=== PATIENT | female | born 1965 | race African-American/Black ===

== ENCOUNTER 2019-12-15 10:00 | Emergency (ER) | payer OTHER ==
[~2019-12-15] VITALS: Ht 172.7 cm; Wt 104.3 kg
[2019-12-15] MEDS ORDERED: NEURONTIN300 MG ORAL (10:18)
--- NOTE | 2019-12-15 10:20 | NUR ---
ED Nurse Note: Pt from home walked in due to right foot numbness x 2 months. hx of osteoarthritis. AAO x4 and ambulates with steady gait.
[2019-12-15 10:24] VITALS: BP 125/65
--- NOTE | 2019-12-15 10:24 | NUR ---
ER DISCHARGE NOTE: Patient is cleared to be discharged per ERMD, pt is aox4, on room air, with stable vital signs. pt was given dc and prescription instructions, pt was able to verbalize understanding, pt id band removed. pt is able to ambulate with steady gait. pt took all belongings.
--- NOTE | 2019-12-15 10:29 | Emergency Room Report ---
History of Present Illness General Chief Complaint: Lower Extremity Injury Source: Patient Present Illness HPI Patient is a 53-year-old female past medical history of osteoarthritis who presents to the ER complaining of numbness and tingling to her right toes for the past 2 to 3 months. She denies any trauma. She states that she is able to ambulate. She states that she has not seen her doctor due to the COVID-19 pandemic. Patient denies any lower extremity swelling or redness. Patient states that he just feels like her toes are sleeping. Allergies: Coded Allergies: No Known Allergies (Unverified , 12/15/19) COVID-19 Screening Contact w/high risk pt: No Recent Travel to affected area: No Experienced COVID-19 symptoms?: No COVID-19 Testing performed MSWS: No Patient History Now: No Reviewed Nursing Documentation: PMH: Agreed; PSxH: Agreed Review of Systems All Other Systems: negative except mentioned in HPI Physical Exam Vital Signs Date Time Temp Pulse Resp B/P (MAP) Pulse Ox O2 Delivery O2 Flow Rate FiO2 12/15/19 10:11 98.1 108 21 112/57 (75) 95 Room Air Sp02 EP Interpretation: reviewed, normal General Appearance: no apparent distress, alert, GCS 15, non-toxic Head: normocephalic, atraumatic Eyes: bilateral eye normal inspection, bilateral eye PERRL ENT: hearing grossly normal, normal pharynx, no angioedema, normal voice Neck: full range of motion, supple/symm/no masses Respiratory: chest non-tender, lungs clear, normal breath sounds, speaking full sentences Cardiovascular #1: regular rate, rhythm, no edema Cardiovascular #2: 2+ dorsalis pedis (R), 2+ dorsalis pedis (L) Gastrointestinal: normal bowel sounds, non tender, soft, non-distended, no guarding, no rebound Rectal: deferred Musculoskeletal: other - Complains of paresthesias to R toes, cap refill immediate, no swelling, no redness, 2+ pedal pulses bilaterally., Normal strength warm extremity Neurologic: topstitcher zigzag III-XII nml as tested Psychiatric: no suicidal/homicidal ideation Skin: no rash Lymphatic: no adenopathy Medical Decision Making Diagnostic Impression: Primary Impression: Paresthesia ER Course Patient has paresthesias to her right toes for the past 2 to 3 months. She is ambulating without difficulty. Extremity is warm and well-perfused. We will try gabapentin. Patient states she will follow-up with her primary care physician if it is not improved. After discussing risks and benefits of further diagnostics, treatment plans, as well as indications for and risks of admission, the patient is agreeable to being discharged home. I have explained that their evaluation and treatment in the emergency department today is an important step towards them achieving better health but that their evaluation today is not intended to replace further evaluation and treatment by a physician in their local clinic. I have explained that while the current findings suggest no immediate life threatening emergency they will require further evaluation and treatment by a physician of their choice in their area. They understand that it will be necessary for them to review the final reports of their ED visit with their clinic physician. We have reviewed indications for return to the Emergency Department. I have explained that additional time may need to pass and/or additional testing as an outpatient may be necessary before a definitive diagnosis can be made. They tell me they are willing to follow up as instructed within the timeframe I recommend. They appear to understand what we discussed. Additionally they understand that if they are unable to be seen by an outpatient physician they are welcome, and in fact should, return to the Emergency Department for a repeat evaluation. The patient is stable at time of discharge. Last Vital Signs Date Time Temp Pulse Resp B/P (MAP) Pulse Ox O2 Delivery O2 Flow Rate FiO2 12/15/19 10:11 98.1 108 21 112/57 (75) 95 Room Air Disposition: HOME, SELF-CARE Condition: Stable Scripts Gabapentin (Neurontin) 300 Mg Capsule 300 MG ORAL THREE TIMES A DAY for 30 Days, CAP 0 Refills Take 300mg PO once day one Take 300mg PO bid day two Take 300mg PO TID days 3-30 Prov: Aleja Mojica M.D. 12/15/19 Referrals: NON PHYSICIAN (PCP) Patient Instructions: Paresthesia, [id number] Additional Instructions: The patient was provided with discharge instructions, notified to follow-up with a primary care doctor and or specialist in the next 24-48 hours, and to return to the ED if they have worsening of their symptoms. Please note that this report is being documented using [employer] technology. This can lead to erroneous entry secondary to incorrect interpretation by the dictating instrument. Aleja Mojica M.D. December 15, 2019 10:29
== END 2019-12-15 10:24 | disposition home or self-care (01) ==
LOC: EMR 10:20
DX: R20.2 Paresthesia of skin (principal); M19.90 Unspecified osteoarthritis, unspecified site
CPT/HCPCS: 99282

== ENCOUNTER 2020-04-23 09:49 | Emergency (ER) | payer OTHER ==
[~2020-04-23] VITALS: Ht 172.7 cm; Wt 95.3 kg
[~2020-04-23 09:49] MED LIST: NEURONTIN300 MG ORAL
[2020-04-23] MEDS ORDERED: IBUPROFEN800 MG ORAL (10:15)
[2020-04-23 10:27] VITALS: BP 117/83
--- NOTE | 2020-04-23 10:58 | Emergency Room Report ---
History of Present Illness General Chief Complaint: Skin Rash/Abscess Source: Patient Present Illness HPI Patient 54-year-old female presents for increased pain to her left breast. Patient states that she had recently attempted to drain a skin lesion. Subsequent noticed increased pain and swelling to the left breast. 3 days of discomfort. Denies prior history of breast disease. She also reports having in creased chest discomfort with associated muscle spasming and shortness of breath. Denies any cough. Reports having previous negative coronavirus testing. Patient states that she is a smoker. She had previously been told that she had possibly diabetes. Allergies: Coded Allergies: No Known Allergies (Unverified , 12/15/19) COVID-19 Screening Contact w/high risk pt: No Recent Travel to affected area: No Experienced COVID-19 symptoms?: No COVID-19 Testing performed TIN ROOFER: No Patient History Past Medical History: see triage record Reviewed Nursing Documentation: PMH: Agreed; PSxH: Agreed Review of Systems All Other Systems: negative except mentioned in HPI Physical Exam Vital Signs Date Time Temp Pulse Resp B/P (MAP) Pulse Ox O2 Delivery O2 Flow Rate FiO2 04/23/20 10:12 98.4 32 18 119/82 (94) 95 Room Air Sp02 EP Interpretation: reviewed, normal General Appearance: normal inspection, well appearing, no apparent distress, alert, GCS 15 Head: atraumatic ENT: normal ENT inspection, hearing grossly normal, normal voice Neck: normal inspection, full range of motion, supple, no bony tend Respiratory: normal inspection, lungs clear, normal breath sounds, no respiratory distress, no retraction, no wheezing Cardiovascular #1: regular rate, rhythm, no edema Gastrointestinal: normal inspection, normal bowel sounds, non tender, soft, no guarding, no hernia Genitourinary: no CVA tenderness Musculoskeletal: normal inspection, back normal, normal range of motion Neurologic: alert, motor strength/tone normal, electric organ checker III-XII nml as tested, oriented x3, responsive, speech normal, normal inspection Psychiatric: normal inspection, judgement/insight normal, mood/affect normal Skin: other - Left-sided breast small ulceration with surrounding erythema without any definite mass. Medical Decision Making Diagnostic Impression: Primary Impression: Cellulitis of left breast Additional Impression: Chest pain in adult ER Course Patient presented for breast lesion as well as chest pain. Differential diagnosis include was not limited to pneumonia, bronchitis, myocardial infarction, unstable angina among others. Because of complexity of patient's case laboratory tests and imaging studies were ordered. Given patient's history of smoking as well as hypertension and possible diabetes. Patient does have some concern for cardiac disease.Patient was discussed with Dr. Raman who accepted the patient to [facility]. Labs Test 04/23/20 11:06 White Blood Count 3.6 K/UL (4.8-10.8) Red Blood Count 5.14 M/UL (4.20-5.40) Hemoglobin 14.8 G/DL (12.0-16.0) Hematocrit 44.3 % (37.0-47.0) Mean Corpuscular Volume 86 FL (80-99) Mean Corpuscular Hemoglobin 28.8 PG (27.0-31.0) Mean Corpuscular Hemoglobin Concent 33.5 G/DL (32.0-36.0) Red Cell Distribution Width 12.7 % (11.6-14.8) Platelet Count 254 K/UL (150-450) Mean Platelet Volume 8.4 FL (6.5-10.1) Neutrophils (%) (Auto) 56.0 % (45.0-75.0) Lymphocytes (%) (Auto) 36.6 % (20.0-45.0) Monocytes (%) (Auto) 5.5 % (1.0-10.0) Eosinophils (%) (Auto) 0.6 % (0.0-3.0) Basophils (%) (Auto) 1.3 % (0.0-2.0) Sodium Level 134 MMOL/L (136-145) Potassium Level 4.3 MMOL/L (3.5-5.1) Chloride Level 100 MMOL/L (98-107) Carbon Dioxide Level 29 MMOL/L (21-32) Anion Gap 5 mmol/L (5-15) Blood Urea Nitrogen 7 mg/dL (7-18) Creatinine 0.7 MG/DL (0.55-1.30) Estimat Glomerular Filtration Rate > 60 mL/min (>60) Glucose Level 380 MG/DL (74-106) Calcium Level 9.3 MG/DL (8.5-10.1) Total Bilirubin 0.3 MG/DL (0.2-1.0) Aspartate Amino Transf (AST/SGOT) 16 U/L (15-37) Alanine Aminotransferase (ALT/SGPT) 22 U/L (12-78) Alkaline Phosphatase 139 U/L (46-116) Troponin I 0.002 ng/mL (0.000-0.056) Pro-B-Type Natriuretic Peptide 25 pg/mL (0-125) Total Protein 7.6 G/DL (6.4-8.2) Albumin 3.7 G/DL (3.4-5.0) Globulin 3.9 g/dL Albumin/Globulin Ratio 0.9 (1.0-2.7) EKG Diagnostic Results Rate: normal Rhythm: NSR ST Segments: other - inferior twave inversion Last Vital Signs Date Time Temp Pulse Resp B/P (MAP) Pulse Ox O2 Delivery O2 Flow Rate FiO2 04/23/20 10:27 98.4 72 17 117/83 97 Room Air Disposition: SHORT-TERM HOSP Condition: Stable Chriss Albarran MD Apr 23, 2020 10:58
[2020-04-23] MEDS ORDERED: cefTRIAXone 1 GM in NS 55 ML IVPB ONE (11:00)
[2020-04-23] MEDS ORDERED: Aspirin Baby 81mg ORAL ONE (11:00)
[2020-04-23 11:59] LABS: BASOPHILS % (AUTO) 1.3 % (0.0-2.0); EOSINOPHILS % (AUTO) 0.6 % (0.0-3.0); HEMATOCRIT 44.3 % (37.0-47.0); HEMOGLOBIN 14.8 G/DL (12.0-16.0); LYMPHOCYTES % (AUTO) 36.6 % (20.0-45.0); MEAN CORPUSCULAR VOLUME 86 FL (80-99); MONOCYTES % (AUTO) 5.5 % (1.0-10.0); PLATELET COUNT 254 K/UL (150-450); RED BLOOD COUNT 5.14 M/UL (4.20-5.40); RED CELL DISTRIBUTION WIDTH 12.7 % (11.6-14.8); WHITE BLOOD COUNT 3.6 K/UL (4.8-10.8)
[2020-04-23 12:06] LABS: ANION GAP 5 mmol/L (5-15); BLOOD UREA NITROGEN 7 mg/dL (7-18); CALCIUM 9.3 MG/DL (8.5-10.1); CARBON DIOXIDE 29 MMOL/L (21-32); CHLORIDE 100 MMOL/L (98-107); CREATININE 0.7 MG/DL (0.55-1.30); POTASSIUM 4.3 MMOL/L (3.5-5.1); SODIUM 134 MMOL/L (136-145)
[2020-04-23] MEDS ORDERED: metFORMIN 500mg tab ORAL ONE (12:15)
[2020-04-23 12:17] LABS: ALANINE AMINOTRANSFERASE 22 U/L (12-78); ALBUMIN 3.7 G/DL (3.4-5.0); ALBUMIN/GLOBULIN RATIO 0.9 (1.0-2.7); ALKALINE PHOSPHATASE 139 U/L (46-116); ASPARTATE AMINO TRANSFERASE 16 U/L (15-37); BILIRUBIN,TOTAL 0.3 MG/DL (0.2-1.0)
[2020-04-23 13:00] VITALS: BP 124/84
[2020-04-23 15:03] VITALS: BP 127/80
[2020-04-23 16:18] VITALS: BP 125/82
--- NOTE | 2020-04-23 16:38 | Diagnostic Imaging Report ---
Indication: Chest pain Technique: One view of the chest Comparison: none Findings: Lungs and pleural spaces are clear. Heart size is normal. Impression: No acute process
--- NOTE | 2020-04-24 17:04 | Cardiology Report ---
APPROVED REPORT EKG Measurement Heart [id number] <Conclusion> Normal sinus rhythm Normal ECG
== END 2020-04-23 16:19 | disposition short-term general hospital (02) ==
LOC: EMR 10:40 → EDBEDREQ 14:14 → EMR 16:19
DX: N61.0 Mastitis without abscess (principal); R07.9 Chest pain, unspecified; F17.200 Nicotine dependence, unspecified, uncomplicated
CPT/HCPCS: 36415; 71045; 80053; 83880; 84484; 85025; 93005; 96361; 96365; J0696; J7030; Z7502; 99284